=== PATIENT | female | born 2000 | race Caucasian/White ===

== ENCOUNTER 2018-09-09 00:54 | Emergency (ER) | payer OTHER ==
[2018-09-09] MEDS ORDERED: IBUPROFEN 600 MG TAB PO ONE ×2 (01:06→01:14)
[2018-09-09 02:08] LABS: PLATELET COUNT 251 10^3/uL (150-400)
--- NOTE | 2018-09-09 02:18 | EDPHY ---
H & P Stated Complaint: Aches, chills, concerned for TSS- had tampn in fo ~90hrs Time Seen by Provider: 09/09/18 01:35 HPI/ROS: HPI The patient presents with fever, chills, abdominal pain for the last 2 days. She went out 2 nights ago and when she woke up yesterday she thought she was hung over with a lot of nausea, vomiting, diarrhea. However, she did have shaking chills and felt very hot. As she tried drinking fluids and this helped somewhat. However, today she has continued to have symptoms of fevers though the vomiting has resolved. She does report that she has developed right lower quadrant abdominal pain which is mild and fairly constant. Tonight, she found a tampon that she had inserted 3 days ago in her vagina. She was concerned that she might be developing toxic shock syndrome so she came in.. REVIEW OF SYSTEMS 10 systems were reviewed and negative with the exception of the elements mentioned in the history of present illness. PMHx: Healthy, on OCPs Soc Hx: Sexually active, college student, occasional alcohol use PHYSICAL General Appearance: Alert, no distress Eyes: Pupils equal and round no pallor or injection ENT, Mouth: Mucous membranes moist Respiratory: There are no retractions, lungs are clear to auscultation Cardiovascular: Regular rate and rhythm Gastrointestinal: Abdomen is soft and tender in the right lower quadrant without rebound or guarding, no masses, bowel sounds normal Pelvic: small amount of blood in the vaginal vault, cervix appears normal, there is no cervical motion tenderness or adnexal tenderness Neurological: A&O, moves all extremities Skin: Warm and dry, no rashes Musculoskeletal: Neck is supple non tender Extremities: symmetrical, full range of motion Psychiatric: Patient is oriented X 3, there is no agitation Source: Patient Exam Limitations: No limitations - Personal History LMP (Females 10-55): 1-7 Days Ago Current Tetanus Diphtheria and Acellular Pertussis (TDAP): Yes - Medical/Surgical History Hx Asthma: No Hx Chronic Respiratory Disease: No Hx Diabetes: No Hx Cardiac Disease: No Hx Renal Disease: No Hx Cirrhosis: No Hx Alcoholism: No Hx HIV/AIDS: No Hx Splenectomy or Spleen Trauma: No Other PMH: Denies - Social History Smoking Status: Never smoked Constitutional: Initial Vital Signs Temperature (C) 36.8 C 09/09/18 00:55 Heart Rate 99 09/09/18 00:55 Respiratory Rate 17 09/09/18 00:55 Blood Pressure 136/81 H 09/09/18 00:55 O2 Sat (%) 98 09/09/18 00:55 O2 Delivery Mode Room Air Allergies/Adverse Reactions: No Known Allergies Allergy (Unverified 09/09/18 01:00) Medical Decision Making - Diagnostics Imaging Results: Ultrasound right lower quadrant demonstrates mesenteric lymph nodes measuring as large as 1.1 cm, pelvic ultrasound is unremarkable, discussed with Dr. Lopez of Radiology. Imaging: Discussed imaging studies w/ community affairs manager Radiologist Differential Diagnosis: 18-year-old female who is healthy presents with 2 days of nausea, vomiting, diarrhea, lower abdominal pain. Also found a tampon in her vagina that had been left for 3 days and was concerned about toxic shock syndrome. I am more concerned about appendicitis given her presentation. Toxic shock syndrome is a consideration, however the patient does not have any rash, has normal vital signs here and is afebrile. I have considered PID as well and have sent cultures for gonorrhea and chlamydia. However, patient does not have any vaginal discharge. Patient had laboratory testing which was unremarkable. STI cultures have not returned as of yet. Ultrasounds were normal, unable to visualize appendix though mesenteric lymph nodes were present. I suspect the patient has mesenteric adenitis. I feel appendicitis is less likely given her presentation. I have discussed this with her. We did discuss appendicitis return precautions. She will be discharged with instructions for anti- inflammatories. - Data Points Laboratory Results: Laboratory Results 09/09/18 02:00 09/09/18 02:00 09/09/18 09/09/18 09/09/18 02:25 02:00 02:00 WBC RBC Hgb Hct MCV MCH MCHC RDW Plt Count MPV Neut % (Auto) Lymph % (Auto) Cooper % (Auto) Eos % (Auto) Baso % (Auto) Nucleat RBC Rel Count Absolute Neuts (auto) Absolute Lymphs (auto) Absolute Monos (auto) Absolute Eos (auto) Absolute Basos (auto) Absolute Nucleated RBC Immature Gran % Immature Gran # Sodium 139 mEq/L mEq/L (135-145) Potassium 4.1 mEq/L mEq/L (3.3-5.0) Chloride 104 mEq/L mEq/L (97-110) Carbon Dioxide 27 mEq/l mEq/l (22-31) Anion Gap 8 mEq/L mEq/L (6-14) BUN 13 mg/dL mg/dL (7-23) Creatinine 0.7 mg/dL mg/dL (0.6-1.0) Estimated GFR > 60 Glucose 97 mg/dL mg/dL (70-100) Calcium 9.7 mg/dL mg/dL (8.5-10.4) Total Bilirubin 0.8 mg/dL mg/dL (0.1-1.4) AST 22 IU/L IU/L (14-46) ALT 21 IU/L IU/L (9-52) Alkaline Phosphatase 71 IU/L IU/L (38-126) Total Protein 7.0 g/dL g/dL (6.3-8.2) Albumin 4.2 g/dL g/dL (3.5-5.0) Beta HCG, Qual NEGATIVE C.trachomatis RNA (TMA) Pending N.gonorrhoeae RNA (TMA) Pending 09/09/18 02:00 WBC 5.40 10^3/uL 10^3/uL (3.80-9.50) RBC 4.78 10^6/uL 10^6/uL (4.18-5.33) Hgb 13.7 g/dL g/dL (12.6-16.3) Hct 41.6 % % (38.0-47.0) MCV 87.0 fL fL (81.5-99.8) MCH 28.7 pg pg (27.9-34.1) MCHC 32.9 g/dL g/dL (32.4-36.7) RDW 14.0 % % (11.5-15.2) Plt Count 251 10^3/uL 10^3/uL (150-400) MPV 9.3 fL fL (8.7-11.7) Neut % (Auto) 61.0 % % (39.3-74.2) Lymph % (Auto) 26.5 % % (15.0-45.0) Cooper % (Auto) 10.4 % % (4.5-13.0) Eos % (Auto) 1.5 % % (0.6-7.6) Baso % (Auto) 0.4 % % (0.3-1.7) Nucleat RBC Rel Count 0.0 % % (0.0-0.2) Absolute Neuts (auto) 3.30 10^3/uL 10^3/uL (1.70-6.50) Absolute Lymphs (auto) 1.43 10^3/uL 10^3/uL (1.00-3.00) Absolute Monos (auto) 0.56 10^3/uL 10^3/uL (0.30-0.80) Absolute Eos (auto) 0.08 10^3/uL 10^3/uL (0.03-0.40) Absolute Basos (auto) 0.02 10^3/uL 10^3/uL (0.02-0.10) Absolute Nucleated RBC 0.00 10^3/uL 10^3/uL (0-0.01) Immature Gran % 0.2 % % (0.0-1.1) Immature Gran # 0.01 10^3/uL 10^3/uL (0.00-0.10) Sodium Potassium Chloride Carbon Dioxide Anion Gap BUN Creatinine Estimated GFR Glucose Calcium Total Bilirubin AST ALT Alkaline Phosphatase Total Protein Albumin Beta HCG, Qual C.trachomatis RNA (TMA) N.gonorrhoeae RNA (TMA) Medications Given: Discontinued Medications Ibuprofen (Motrin) 600 mg PO EDNOW ONE Stop: 09/09/18 01:15 Last Admin: 09/09/18 01:17 Dose: 600 mg Departure - Departure Disposition: Home, Routine, Self-Care Clinical Impression: Mesenteric adenitis Condition: Good Instructions: Mesenteric Adenitis (ED) Additional Instructions: I recommend you take ibuprofen or Tylenol as needed for pain. If your symptoms continue, you should follow up at [facility]. Referrals: [facility],. [Clinic] - As per Instructions
[2018-09-09 03:23] VITALS: BP 118/67
[2018-09-09 12:11] LABS: GC AMPLIFICATION GENPROBE NEGATIVE (NEGATIVE)
== END 2018-09-09 03:22 | disposition home or self-care (01) ==
DX: I88.0 Nonspecific mesenteric lymphadenitis (principal)